=== PATIENT | female | born 1990 | race African-American/Black ===

== ENCOUNTER 2017-08-30 09:06 | Emergency (ER) | payer BC, OTHER ==
[~2017-08-30] VITALS: Ht 172.7 cm; Wt 61.2 kg
[~2017-08-30 09:06] MED LIST: ACETAMINOPHEN-1 EAC1 PO; CIPROFLOXACIN500 M1 PO; IBUPROFEN 600600 M1 PO; KEFLEX500 M1 PO; KENALOG60 GM TP; NORCO 5-325 TA1 EACH PO; PREDNISONE 20 M20 MG PO; PRENATAL; ULTRAM 50MG TAB50 MG PO; VISTARIL 25 MG25 M1 PO; ZANTAC 150MG T150 M1 PO
[2017-08-30] MEDS ORDERED: CELEXA20 MG PO (09:11)
[2017-08-30 09:42] LABS: URINE BILIRUBIN NEGATIVE (Negative); URINE BLOOD NEGATIVE (Negative); URINE COLOR YELLOW; URINE GLUCOSE-RANDOM* NEGATIVE (Negative); URINE KETONES NEGATIVE (Negative); URINE NITRITE NEGATIVE (Negative); URINE PROTEIN (DIPSTICK) NEGATIVE (Negative); URINE SPECIFIC GRAVITY <= 1.005 (1.003-1.035); URINE UROBILINOGEN 0.2 E.U./dl (0.2-1.0)
[2017-08-30 09:49] LABS: BASOPHILS 0.7 % (0.0-2.0); EOSINOPHILS 0.3 % (0.0-3.0); HEMATOCRIT 37.4 % (37.0-47.0); HEMOGLOBIN 12.9 gm/dL (12.0-15.0); LYMPHOCYTES 16.2 % (24.0-44.0); MCH 27.9 pg (26.0-34.0); MCHC 34.4 g/dL (28.0-37.0); MCV 81.1 fL (80.0-100.0); PLATELET COUNT 228 thou/uL (150-400); POLYS 76.8 % (36.0-66.0); RBC 4.61 mil/uL (4.20-5.00); WBC 6.5 thou/uL (4.0-11.0)
[2017-08-30 09:52] LABS: MANUAL DIFF NO
[2017-08-30 09:56] LABS: CALCIUM 9.1 mg/dL (8.5-10.1); CREATININE 0.9 mg/dL (0.6-1.0); POTASSIUM 4.2 mmol/L (3.5-5.1)
[2017-08-30] MEDS ORDERED: NORCO 5-325 TA1 EACH PO (11:11)
[2017-08-30] MEDS ORDERED: IBUPROFEN 600600 M1 PO (11:11)
[2017-08-30 12:37] VITALS: BP 124/70
== END 2017-08-30 12:38 | disposition home or self-care (01) ==
LOC: ER 09:06
PROVIDERS: Nurse Practitioner
DX: S32.048A Other fracture of fourth lumbar vertebra, initial encounter for closed fracture (principal); S80.02XA Contusion of left knee, initial encounter; S80.01XA Contusion of right knee, initial encounter; V89.2XXA Person injured in unspecified motor-vehicle accident, traffic, initial encounter; Y93.89 Activity, other specified; Y92.89 Other specified places as the place of occurrence of the external cause; Y99.8 Other external cause status